=== PATIENT | female | born 1990 ===

== ENCOUNTER 2021-11-30 09:30 | Emergency (ER) | payer BC, OTHER ==
--- OUTSIDE RECORDS SUMMARY | 2021-11-30 09:33 | XMS REPORT | Continuity of Care Document ---
:1990 Author Organization [facility] t Address [address] [place] [address] Care Team Providers Name Role Phone PCP, DOES NOT HAVE A Primary Care Physician Unavailable NEO VARGAS Attending Clinician Unavailable Nurse, Pob Immunization Attending Clinician Unavailable Jon Campo DO Attending Clinician JON CAMPO Attending Clinician Unavailable Jacques OSHEA Attending Clinician Unavailable Jacques Oshea DO Attending Clinician LENNOX Attending Clinician Unavailable Josefina ALVARADO Attending Clinician Unavailable Only, Db Test Attending Clinician Unavailable Will ENGEL Attending Clinician WILL Attending Clinician Unavailable Doctor Unassigned, Name Attending Clinician Unavailable Payers Payer Name Policy Type Policy Number Effective Date Expiration Date S aleida BCBS 2 [id number] 2020 00:00:00 Problems Condition Condition Condition Status Onset Resolution Last Treating Co mments Source Name Details Category Date Date Treatment Clinician Date Malaria Malaria Disease Active 2013- Univers 02-25 ity of 00:00: [address] Allergies, Adverse Reactions, Alerts Allergy Allergy Status Severity Reaction(s) Onset Inactive Treating Comm ents Source Name Type Date Date Clinician NO KNOWN Drug Active Univers ALLERGIE Class ity of S [facility] Social History Social Habit Start Date Stop Date Quantity Comments Source Exposure to Not sure [facility] SARS-CoV-2 (event) Medica l Branch Alcohol intake 2019-05-23 2019-05-23 [facility] 00:00:00 00:00:00 Medical Branch Sex Ass[birth year] At [birth year] [facility] 00:00:00 00:00:00 Medical Branch Smoking Status Start Date Stop Date Source Never smoker [facility] Medications Ordered Filled Start Stop Current Ordering Indication Dosage Frequency Signature Comments Components Source Medication Medication Date Date Medication? Clinician (SIG) Name Name ciprofloxac 2017-0 Yes 500mg Take 1 Uni vers in HCl 500 5-21 tablet by ity of mg tablet 00:00: mouth 2 [place] (two) Medical times Branch daily. ciprofloxac 2017-0 Yes 500mg Take 1 Uni vers in HCl 500 5-21 tablet by ity of mg tablet 00:00: mouth 2 [place] (two) Medical times Branch daily. ciprofloxac 2017-0 Yes 500mg Take 1 Uni vers in HCl 500 5-21 tablet by ity of mg tablet 00:00: mouth 2 [place] (two) Medical times Branch daily. ciprofloxac 2017-0 Yes 500mg Take 1 Uni vers in HCl 500 5-21 tablet by ity of mg tablet 00:00: mouth 2 [place] (two) Medical times Branch daily. ciprofloxac 2017-0 Yes 500mg Take 1 Uni vers in HCl 500 5-21 tablet by ity of mg tablet 00:00: mouth 2 [place] (two) Medical times Branch daily. FLUOXETINE 2014-09 Yes 60mg Take 60 mg U nivers HCL 2-15 by mouth ity of ([place] 03[place] Branch FLUOXETINE 2014-09 Yes 60mg Take 60 mg U nivers HCL 2-15 by mouth ity of ([place]OX[place] 03:[place] [facility] FLUOXETINE 2014-09 Yes 60mg Take 60 mg U nivers HCL 2-15 by mouth ity of (FLUOXETINE 03:19[place] Medical Branch FLUOXETINE 2014-09 Yes 60mg Take 60 mg U nivers HCL 2-14 by mouth ity of (FLUOXETINE 21:19[place] Medical Branch FLUOXETINE 2014-09 Yes 60mg Take 60 mg U nivers HCL 2-14 by mouth ity of (FLUOXETINE 21:[place] 31 Medical Branch traMADOL 2014-09 Yes 50mg Take 1 Tab Uni vers (ULTRAM) 50 2-14 by mouth ity of mg tablet 00:00: every 6 [place] [address] (six) Medical hours as Branch needed for Pain (scale 4-6). Gianfranco Rodriguez PA-C / Ebenezer Ramos MD BEV# [id number] DPS# [id number] x Lic.# [id number] NPI# [id number] cyclobenzap 2014-09 Yes 5mg Take 1 Tab Univers rine 2-14 by mouth 3 ity of ([place] 5 [place] tablet 00 times Medical daily. Branch traMADOL 2014-09 Yes 50mg Take 1 Tab Uni vers (ULTRAM) 50 2-14 by mouth ity of mg tablet 00:00: every 6 [place] [address] (six) Medical hours as Branch needed for Pain (scale 4-6). Gianfranco Rodriguez PA-C / Ebenezer Ramos MD BEV# [id number] DPS# [id number] x Lic.# [id number] NPI# [id number] cyclobenzap 2014-09 Yes 5mg Take 1 Tab Univers rine 2-14 by mouth 3 ity of ([place]) [place] 5 mg tablet 00 times Medical daily. Branch traMADOL 2014-09 Yes 50mg Take 1 Tab Uni vers (ULTRAM) 50 2-14 by mouth ity of mg tablet 00:00: every 6 [place] [address] (six) Medical hours as Branch needed for Pain (scale 4-6). Gianfranco Rodriguez PA-C / Ebenezer Ramos MD BEV# [id number] DPS# [id number] x Lic.# [id number] NPI# [id number] cyclobenzap 2014-09 Yes 5mg Take 1 Tab Univers rine 2-14 by mouth 3 ity of ([place]) [place]: [place] 5 mg tablet 00 times Medical daily. Branch traMADOL 2014-09 Yes 50mg Take 1 Tab Uni vers (ULTRAM) 50 2-14 by mouth ity of mg tablet 00:00: every 6 [place] [address] (six) Medical hours as Branch needed for Pain (scale 4-6). Gianfranco Rodriguez PA-C / Ebenezer Ramos MD BEV# [id number] DPS# [id number] x Lic.# [id number] NPI# [id number] cyclobenzap 2014-09 Yes 5mg Take 1 Tab Univers rine 2-14 by mouth 3 ity of ([place]) [place]: (three[place] 5 mg tablet 00 times Medical daily. Branch traMADOL 2014-09 Yes 50mg Take 1 Tab Uni vers (ULTRAM) 50 2-14 by mouth ity of mg tablet 00:00: every 6 [place] 00 (six) Medical hours as Branch needed for Pain (scale 4-6). Gianfranco Rodriguez PA-C / Ebenezer Ramos MD BEV# [id number] DPS# [id number] x Lic.# [id number] NPI# [id number] cyclobenzap 2014-09 Yes 5mg Take 1 Tab Univers rine 2-14 by mouth 3 ity of ([place]) [place]: (three[place] 5 mg tablet 00 times Medical daily. Branch Immunizations Ordered Filled Immunization Date Status Comments [facility] e Immunization Name Name SARS-COV-2 COVID-19 2021-09-13 Completed Unive rsity of MODERNA BOOSTER 00:00:00 [facility] ical VACCINE Branch Vital Signs Vital Name Observation Time Observation Value Comments Source Systolic blood 2021-09-09 16:02:00 184 mm[Hg] Univer sity of pressure [facility] Diastolic blood 2021-09-09 16:02:00 113 mm[Hg] Unive rsity of pressure [facility] Heart rate 2021-09-09 16:02:00 78 /min [facility] Body temperature 2021-09-09 16:02:00 36.78 Geeta [facility] Respiratory rate 2021-09-09 16:02:00 18 /min [facility] Body weight 2021-09-09 16:02:00 136.986 kg [facility] BMI 2021-09-09 16:02:00 47.30 kg/m2 [facility] Oxygen saturation in 2021-09-09 16:02:00 100 /min [facility] Arterial blood by [facility] Pulse oximetry Branch Procedures Procedure Date / Time Performed Performing Clinician Ibrahima hernández SARS-COV-2 COVID-19 2021-09-13 22:35:51 Doctor Unassigned, No [facility] [place] VACCINE Name [facility] BOOSTER,0.25ML,IM (MODERNA) CONSENT/REFUSAL FOR 2021-09-09 15:57:13 Doctor Unassigned, No [facility] [place] DIAGNOSIS AND Name [facility] TREATMENT NOTICE OF PRIVACY 2021-09-09 15:56:38 Doctor Unassigned, No [facility] Name [facility] ASSIGNMENT OF BENEFITS 2021-05-14 17:34:38 Doctor Unassigned, No [facility] Encounters Start End Encounter Admission Attending Care Care Encounter Source Date/Time Date/Time Type Type Clinicians Facility Department ID 2021-11-08 2021-11-08 Outpatient NICOLE VARGAS [id number] [address] 00:00:00 00:00:00 TARAH rivas 2021-09-13 2021-09-13 Imm/Inj Nurse, Adc Pob Immunization [facility] [id number] Univers 16:20:00 16:21:32 Visit Arjun Campo 350.1.13 .10 [id number] [address] 2021-09-13 2021-09-13 Outpatient Monse CAMPO [facility] [id number] Univers 16:20:00 16:20:00 ARJUN paredes [facility] 2021-09-09 2021-09-09 Emergency X DORIE [facility] ERT [id number] Univers 10:07:00 10:35:00 BRITTANIE paredes [facility] 2021-09-09 2021-09-09 Emergency Dorie [facility] [id number] Univers 10:07:00 10:35:00 Brittanie PAN [id number] [facility] [id number] [place] [id number] [address] 2021-08-14 2021-08-14 Outpatient NICOLE HIGH [id number] Nicole 00:00:00 00:00:00 BIBIANA rivas 2021-05-15 2021-05-15 Telephone VARUN Rocha [id number] Univers 00:00:00 00:00:00 Aneatrice DOUGLAS [id number] ity of [facility] 4.2.7.2.686 Ho as [phone] [facility] [address] 2021-05-14 2021-05-14 Laboratory Only, Ang Db Test [facility] [id number] Univers 12:34:59 12:49:59 Only Varun Solis [id number] ity of [place] 4.2.7.2.686 Ho as Benigno?Blea [id number] [address] Medical Office Building 2021-05-14 2021-05-14 Outpatient Monse SOLSI [facility] [id number] Univers 12:30:00 12:30:00 VARUN paredes of [facility] 2021-05-14 2021-05-14 Orders Doctor VARUN [id number] Univers 00:00:00 00:00:00 Only Unassigned, DOUGLAS 350.1.13.10 ity of [place] [facility] [id number] Ho as [phone] [facility] [address] Results This patient has no known results.
[2021-11-30] MEDS ORDERED: AMOX/K CLAV 875 MG TAB ONE (09:54)
[2021-11-30] MEDS ORDERED: TETANUS & DIPHTHERIA TOX,ADULT 0.5 ML VIAL ONE (09:55)
--- NOTE | 2021-11-30 10:22 | ER ---
Nurse's Notes [facility] Name: Nelsy Francois Age: 31 yrs Sex: Female : 1990 Arrival Date: 11/30/2021 Time: 09:34 Bed 20 Private MD: Diagnosis: Bitten by dog;Laceration without foreign body of right hand Presentation: 11/30 09:45 Chief complaint: Patient states: her dog bit her last night to right hand. aa5 09:45 Coronavirus screen: At this time, the client does not indicate any symptoms associated aa5 with coronavirus-19. Ebola Screen: No symptoms or risks identified at this time. Initial Sepsis Screen: Does the patient meet any 2 criteria? No. Patient's initial sepsis screen is negative. Does the patient have a suspected source of infection? No. Patient's initial sepsis screen is negative. Risk Assessment: Do you want to hurt yourself or someone else? Patient reports no desire to harm self or others. Onset of symptoms was November 2020. 09:45 Acuity: DAIANA 4 aa5 09:45 Method Of Arrival: Ambulatory aa5 Triage Assessment: 09:58 Bite description: bite sustained to right hand is superficial, by a dog, animal ab2 information: vaccination(s) is unknown. 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 - Social history:: Smoking status: Patient denies any tobacco usage or history of. Patient uses alcohol, occasionally. Screenin:58 Abuse screen: Denies threats or abuse. Denies injuries from another. Nutritional ab2 screening: No deficits noted. Tuberculosis screening: No symptoms or risk factors identified. Fall Risk None identified. Assessment: 09:57 General: Appears in no apparent distress. comfortable, Behavior is calm, cooperative, ab2 appropriate for age. Pain: Complains of pain in right hand. 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 Gait is steady, Speech is normal. Cardiovascular: No deficits noted. Denies chest pain, shortness of breath, Heart tones S1 S2 present Patient's skin is warm and dry. Respiratory: Airway is patent Respiratory effort is even, unlabored, Respiratory pattern is regular, symmetrical, Breath sounds are clear bilaterally. GI: No deficits noted. No signs and/or symptoms were reported involving the gastrointestinal system. Abdomen is round non-distended, Bowel sounds present X 4 quads. : No deficits noted. No signs and/or symptoms were reported regarding the genitourinary system. EENT: No deficits noted. No signs and/or symptoms were reported regarding the EENT system. Derm: Skin is intact, is healthy with good turgor, Skin is dry, Skin is pink, warm \T\ dry. Wound noted right hand Wound is Small abrasion noted to [address] [place] [address]. 10:01 Reassessment: Dog bite reported to [facility] [employer] [facility]. Animal control states aa5 to tell patient to call them later today after she is discharged from ER, pt was notified of need to contact animal control and was given their phone number and address. . 10:29 Reassessment: Discharge ordered but waiting for xray before discharging patient home. ab2 Vital Signs: 09:45 BP 138 / 92; Pulse 81; Resp 18 S; Temp 98.6(TE); Pulse Ox 100% on R/A; Weight 136.98 kg aa5 (R); Height 5 ft. 6 in. (167.64 cm) (R); 10:55 BP 127 / 89; Pulse 76; Resp 16; Pulse Ox 98% on R/A; ab2 09:45 Body Mass Index 48.74 (136.98 kg, 167.64 cm) aa5 ED Course: 09:34 Patient arrived in ED. kz 09:36 Cristel Mcknight FNP-C is PHCP. kb 09:36 Liborio Diana DO is Attending Physician. kb 09:45 Arm band placed on. aa5 09:47 Triage completed. aa5 09:49 Jalen Al is Primary Nurse. ab2 09:58 No provider procedures requiring assistance completed. ab2 09:59 Patient has correct armband on for positive identification. Bed in low position. Call ab2 light in reach. Side rails up X2. Adult w/ patient. 10:10 Hand Right 3 View XRAY In Process Unspecified. EDMS 10:20 Arcadio Garcia MD is Referral Physician. kb 10:30 Patient did not have IV access during this emergency room visit. 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 Exp: ab2 02/03/2023. Lot #: [id number]. } Route: IM; Site: right deltoid; 10:30 Follow up: Response: No adverse reaction ab2 Outcome: 10:21 Discharge ordered by MD. kb 10:55 Discharged to home ambulatory, with family. ab2 10:55 Condition: good 10:55 Discharge instructions given to patient, family, Instructed on discharge instructions, follow up and referral plans. medication usage, Demonstrated understanding of instructions, follow-up care, medications, Prescriptions given X 1. 10:55 Patient left the ED. ab2 Signatures: Dispatcher [employer] EDMS Cristel Mcknight, PRODUCTION GRADER-C PRODUCTION GRADER-Swati Blas, RN RN [email or web address] Jalen Al ab2 Charlene Barragan
--- NOTE | 2021-11-30 10:22 | EDPHYS ---
Physician Documentation [facility] Name: Nelsy Francois Age: 31 yrs Sex: Female : 1990 Arrival Date: 11/30/2021 Time: 09:34 Bed 20 Private MD: ED Physician Liborio Diana HPI: 11/30 10:18 This 31 yrs old Female presents to ER via Ambulatory with complaints of Dog Bite - kb Right hand. 10:18 The patient was bitten on the dorsum of right hand, by a dog, while trying to stop kb animals from fighting, at home. Onset: The symptoms/episode began/occurred last night. Animal information: The animal was reported to appear healthy. Animal's vaccinations are up to date. Secondary to the bite the patient reports Associated signs and symptoms: Pertinent positives: pain at site, tenderness, Pertinent negatives: bony tenderness, erythema at site, fever, fluctuance, loss of consciousness, motor deficit, numbness distal to wound, suspected foreign body, swelling at site. Severity of symptoms: At their worst the symptoms were moderate, in the emergency department the symptoms are unchanged. The patient has not experienced similar symptoms in the past. The patient has not recently seen a physician. Pt heard her dogs fighting in the middle of the night, reached down to break them apart and got bitten on right hand. States she glued the cut and went back to sleep. Came in today for increased pain to hand. No redness, warmth noted. 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 - Social history:: Smoking status: Patient denies any tobacco usage or history of. Patient uses alcohol, occasionally. ROS: 10:11 Constitutional: Negative for fever, chills, and weight loss. kb 10:11 Skin: Positive for laceration(s), pustules, of the dorsum of right hand. 10:11 All other systems are negative. Exam: 10:12 Constitutional: This is a well developed, well nourished patient who is awake, alert, kb and in no acute distress. Head/Face: Normocephalic, atraumatic. ENT: Moist Mucous membranes Respiratory: Respirations even and unlabored. No increased work of breathing. Talking in full sentences MS/ Extremity: Pulses equal, no cyanosis. Neurovascular intact. Full, normal range of motion. Neuro: Awake and alert, GCS 15, oriented to person, place, time, and situation. Moves all extremities. Normal gait. Psych: Awake, alert, with orientation to person, place and time. Behavior, mood, and affect are within normal limits. 10:12 Skin: injury, bite(s), superficial, of the dorsum of right hand. Vital Signs: 09:45 BP 138 / 92; Pulse 81; Resp 18 S; Temp 98.6(TE); Pulse Ox 100% on R/A; Weight 136.98 kg aa5 (R); Height 5 ft. 6 in. (167.64 cm) (R); 10:55 BP 127 / 89; Pulse 76; Resp 16; Pulse Ox 98% on R/A; ab2 09:45 Body Mass Index 48.74 (136.98 kg, 167.64 cm) aa5 MDM: 09:45 Patient medically screened. kb 10:11 Data reviewed: vital signs, nurses notes. Data interpreted: Pulse oximetry: on room air kb is 100 %. Interpretation: normal. Counseling: I had a detailed discussion with the patient and/or guardian regarding: the historical points, exam findings, and any diagnostic results supporting the discharge/admit diagnosis, radiology results, the need for outpatient follow up, a hand specialist, to return to the emergency department if symptoms worsen or persist or if there are any questions or concerns that arise at home. 10:12 ED course: Pt given strict return precautions due to increased risk of infection from kb dog bite. Educated to follow up with Dr Garcia . 11/30 09:45 Order name: Hand Right 3 View XRAY; Complete Time: 10:45 kb 11/30 09:45 Order name: Misc. 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 Exp: ab2 02/03/2023. Lot #: [id number]. } Route: IM; Site: right deltoid; 10:30 Follow up: Response: No adverse reaction ab2 Disposition: 15:31 Co-signature as Attending Physician, Liborio Diana DO I agree with the assessment and ms3 plan of care. Disposition Summary: 11/30/21 10:21 Discharge Ordered Location: Home kb Condition: Stable kb Diagnosis - Bitten by dog kb - Laceration without foreign body of right hand kb Followup: kb - With: Arcadio Garcia MD - When: 2 - 3 days - Reason: Recheck today's complaints Followup: kb - With: Emergency Department - When: As needed - Reason: Worsening of condition Discharge Instructions: - Discharge Summary Sheet kb - Animal Bite, Adult, [id number] kb Forms: - Medication Reconciliation Form kb - Thank You Letter kb - Antibiotic Education kb - Prescription Opioid Use kb Prescriptions: - Augmentin 875-125 mg Oral Tablet - take 1 tablet by ORAL route every 12 hours for 10 days; 20 tablet; Refills: 0, kb Product Selection Permitted Signatures: Dispatcher [employer] Cristel Mccormack, LUISANA-C LUISANA-Swati Blas, RN RN aa5 Liborio Diana DO DO ms3 Jalen Al ab2
--- NOTE | 2021-11-30 10:42 | RAD REPORT ---
EXAM DESCRIPTION: RAD - Hand Right 3 View - 11/30/2021 10:10 am CLINICAL HISTORY: Right hand pain status post dog bite FINDINGS: No fracture or dislocation is seen. A radiopaque foreign body is not seen
[2021-11-30 11:07] VITALS: TEMP 98.6
[2021-11-30 11:09] VITALS: BP 127/89; O2SAT 98
== END 2021-11-30 10:55 | disposition home or self-care (01) ==
LOC: ER 09:30
DX: S61.411A Laceration without foreign body of right hand, initial encounter (principal); W54.0XXA Bitten by dog, initial encounter; Z23 Encounter for immunization; F41.8 Other specified anxiety disorders
CPT/HCPCS: 90471; 90714; 99283